=== PATIENT | male | born 1970 | race African-American/Black ===

== ENCOUNTER 2024-03-18 21:39 | Emergency (ER) | payer OTHER ==
[~2024-03-18] VITALS: Ht 172.7 cm; Wt 77.3 kg
[2024-03-18 21:46] VITALS: BP 133/99; PULSE 86; RESP 18; TEMP 98; O2SAT 98
== END 2024-03-18 23:17 | disposition home or self-care (01) ==
LOC: EMS 21:39
DX: M54.6 Pain in thoracic spine (principal); F10.129 Alcohol abuse with intoxication, unspecified; Y90.8 Blood alcohol level of 240 mg/100 ml or more
CPT/HCPCS: 99283; Z7502